=== PATIENT | female | born 1955 | race Caucasian/White ===

== ENCOUNTER 2016-07-15 17:45 | Emergency (ER) ==
[2016-07-15 17:56] VITALS: BP 117/76; TEMP 98.7; BMI 31.4
--- NOTE | 2016-07-15 18:39 | ED.PDOC ---
General ED Provider: Dr. MELCHOR JORDAN Chief Complaint: Elbow Pain/Injury Stated Complaint: ELBOW PAIN Time Seen by Physician: 18:00 (FALL TODAY) Mode of Arrival: Walk-In Information Source: Patient Exam Limitations: No limitations Primary Care Provider: DEBBIE WATKINS Nursing and Triage Documentation Reviewed and Agree: Yes Musculoskeletal Complaint Exam - Elbow Pain Complaint/Exam Mechanism of Injury: Reports: Trauma Onset/Duration: RIGHT ELBOW TODAY, RIGHT SHOULDER Symptoms Are: Still present Onset of Pain: Reports: Hours Initial Severity: Moderate Current Severity: Moderate Location: Reports: Discrete Character: Reports: Aching Alleviating: Reports: Rest Aggravating: Reports: Movement Associated Signs and Symptoms: Denies: Swelling, Redness, Bruising, Fever, Weakness, Numbness, Tingling Related History: Reports: Similar episode Related Surgical History: Reports: None Tenderness: Present: Medial Condyle, Lateral Condyle, Olecranon Limited Range of Motion: Present: Flexion, Extension, Pronation, Supination Differential Diagnoses: Closed Fracture Review of Systems - Review Of Systems Constitutional: Reports: No symptoms Eyes: Reports: No symptoms Ears, Nose, Mouth, Throat: Reports: No symptoms Respiratory: Reports: No symptoms Cardiac: Reports: No symptoms GI: Reports: No symptoms : Reports: No symptoms Musculoskeletal: Reports: Joint pain (ELBOW, SHOULDER RIGHT) Skin: Reports: No symptoms Neurological: Reports: No symptoms Endocrine: Reports: No symptoms Hematologic/Lymphatic: Reports: No symptoms All Other Systems: Reviewed and Negative Past Medical History - Past Medical History Endocrine: Reports: Hypothyroid, Dyslipidemia Cardiovascular: Reports: None Respiratory: Reports: None Hematological: Reports: None Gastrointestinal: Reports: GERD Genitourinary: Reports: None Neuro/Psych: Reports: None Musculoskeletal: Reports: None Cancer: Reports: None Last Menstrual Period: hysterectomy - Surgical History General Surgical History: Reports: Hysterectomy - Family History Family History: Reports: None - Social History Smoking Status: Former smoker Hx Substance Use: No Alcohol Screening: Occasionally Physical Exam - Physical Exam Appearance: Well-appearing, No pain distress, Well-nourished Eyes: TIBURCIO, EOMI, Conjunctiva clear ENT: Ears normal, Nose normal, Oropharynx normal Respiratory: Airway patent, Breath sounds clear, Breath sounds equal, Respirations nonlabored Cardiovascular: RRR, Pulses normal, No rub, No murmur GI/: Soft, Nontender, No masses, Bowel sounds normal, No Organomegaly Musculoskeletal: Normal strength, ROM intact, No edema, No calf tenderness Skin: Warm, Dry, Normal color Neurological: Sensation intact, Motor intact, Reflexes intact, Cranial nerves intact, Alert, Oriented Psychiatric: Affect appropriate, Mood appropriate Interpretation - Radiology Interpretation Radiology Interpretation By: Radiologist Critical Care Note - Critical Care Note Total Time (mins): 0 Course - Course Orders, Labs, Meds: Orders Category Date Time Status ELBOW, RIGHT MIN 3 VIEWS Stat RADS 07/15/16 18:19 Ordered HUMERUS, RIGHT 2 VIEWS Stat RADS 07/15/16 18:19 Ordered SHOULDER, RIGHT MIN 2V Stat RADS 07/15/16 18:19 Ordered Vital Signs: Temp Pulse Resp BP Pulse Ox 07/15/16 17:45 98.7 F 79 20 117/76 97 Departure - Departure Time of Disposition: 18:38 Disposition: HOME SELF-CARE Discharge Problem: Elbow joint pain Sprain of elbow, right Qualifiers: Encounter type: initial encounter Qualifier Code: (S53.401A) Unspecified sprain of right elbow, initial encounter Instructions: Arthralgia (ED) Condition: Good Pt referred to PMD for follow-up: No Additional Instructions: Please call your Family Physician as soon as possible to schedule a follow-up appointment. Prescriptions: Hydrocodone/Acetaminophen [[place] 10-325 Tablet] 1 each PO Q8HR #10 tablet Allergies/Adverse Reactions: Allergies No Known Allergies Allergy (Verified 07/15/16 17:54) Home Medications: Ambulatory Orders Atorvastatin Calcium [Lipitor] 1 tab PO DAILY 03/18/15 Esomeprazole Magnesium [Nexium] 40 mg PO DAILY 03/18/15 Levothyroxine Sodium [Synthroid] 1 tab PO DAILY 03/18/15 Alendronate Sodium [Fosamax] 70 mg PO WEEKLY 07/15/16 Hydrocodone/Acetaminophen [[place] 10-325 Tablet] 1 each PO Q8HR #10 tablet Disposition Discussed With: Patient
--- NOTE | 2016-07-15 18:56 | DI ---
EXAM: Right humerus; AP and lateral views HISTORY: Arm pain post fall FINDINGS: Minimal osteophyte formation is detected at the acromioclavicular joint space. The glenoh umeral joint space is maintained. No fracture or subluxation are detected. The soft tissues of bone density are normal. OPINION: No acute fracture or subluxation.
--- NOTE | 2016-07-15 18:56 | DI ---
EXAM: Right shoulder; AP internal rotation, AP external rotation, and scapular Y views HISTORY: Shoulder pain post fall FINDINGS: Minimal osteophyte formation is suggested acromioclavicular joint space. The glenohumeral joint space is maintained. The soft tissues and bone density are normal. No fracture, osteolysis, or subluxation are detected. OPINION: No acute fracture or subluxation. Minimal acromioclavicular osteoarthritis.
--- NOTE | 2016-07-15 18:57 | DI ---
EXAM: Right elbow; AP, lateral, and oblique views HISTORY: Elbow pain post fall FINDINGS: There is a comminuted fracture coursing to the articular surface of the radial head with m inimal step-off deformity of less than 0.7 mm. An elbow joint effusion is noted. No dislocation or subluxation are detected. OPINION: Intra-articular fracture coursing the articular surface of the radial head with a minimal s tep-off deformity of less 0.7 mm. Elbow joint hemarthrosis.
== END 2016-07-15 19:29 | disposition home or self-care (01) ==
LOC: ED 17:45
DX: S52.121A Displaced fracture of head of right radius, initial encounter for closed fracture (principal); S49.91XA Unspecified injury of right shoulder and upper arm, initial encounter; W19.XXXA Unspecified fall, initial encounter
CPT/HCPCS: 99283

== ENCOUNTER 2016-09-12 08:16 | Day surgery (SDC) ==
[2016-09-12] MEDS ORDERED: VERSED ONE (09:53)
[2016-09-12] MEDS ORDERED: DIPRIVAN 20 ML VIAL IVP ONE (09:53)
[2016-09-12] MEDS ORDERED: LIDOCAINE 1% 20 ML MDV ID ONE (09:53)
[2016-09-12 11:26] VITALS: BP 133/76; TEMP 98
--- NOTE | 2016-09-13 09:50 | OP ---
PROCEDURE: COLONOSCOPY TO THE CECUM WITH COLD SNARE POLYPECTOMY. ENDOSCOPIST: Lobo WHITEHEAD M.D. INDICATION: HISTORY OF POLYPS. INSTRUMENT: [id number]. MEDICATION: PER ANESTHESIA. PROCEDURE: The patient was positioned for colonoscopy. The digital rectal exam was negative. The colonoscope was inserted through the anus and advanced under direct vision to the cecum. The cecum was identified using the ileocecal valve and the appendiceal orifice as landmarks. The scope was slowly withdrawn through an adequately prepped colon. At 60 cm a small polyp is removed using cold snare polypectomy. Retroflex exam was otherwise normal. She tolerated the procedure without immediate complication. Withdrawal time 12 minutes and 26 seconds. PLAN: 1. Suggest repeat colonoscopy in 5 years. CC: DR. ROLAND LEONARD
== END 2016-09-12 11:34 | disposition home or self-care (01) ==
LOC: SURG 08:16
PROVIDERS: ATTEND Internal Medicine Gastroenterology
DX: Z09 Encounter for follow-up examination after completed treatment for conditions other than malignant neoplasm (principal); Z86.010 Personal history of colon polyps; D12.4 Benign neoplasm of descending colon; K57.30 Diverticulosis of large intestine without perforation or abscess without bleeding

== ENCOUNTER 2017-11-17 08:31 | Outpatient (CLI) | END 2017-11-17 08:32 | disposition home or self-care (01) | LOC: RAD 08:31 | PROVIDERS: ATTEND Family Medicine | DX: Z12.31 Encounter for screening mammogram for malignant neoplasm of breast (principal) | CPT/HCPCS: 77067 ==

== ENCOUNTER 2018-10-09 08:23 | Outpatient (CLI) ==
--- NOTE | 2018-10-10 10:50 | MAMMO ---
EXAM: Bilateral digital screening mammogram (2-D and 3-D) History: Screening Comparison: Bilateral mammogram 11/17/2017 Findings: MLO and CC views of bilateral breasts demonstrate scattered fibroglandular breast parenchy ma. CAD was reviewed by the radiologist. Tomosynthesis was performed. Stable small benign lymph no de within the left breast. There are no suspicious masses, no microcalcifications and no architectur al distortions Impression: Benign stable mammogram. Recommend followup routine screening mammography in 1 year. BI-RADS 2, benign
== END 2018-10-09 08:24 | disposition home or self-care (01) ==
LOC: RAD 08:23
PROVIDERS: ATTEND Family Medicine
DX: Z12.31 Encounter for screening mammogram for malignant neoplasm of breast (principal)